=== PATIENT | male | born 1985 | race Hispanic/Latino ===

== ENCOUNTER 2019-04-15 19:47 | Emergency (ER) | payer OTHER ==
[2019-04-15] MEDS ORDERED: ACETAMINOPHEN 325 MG TAB ONE (21:04)
== END 2019-04-15 22:03 ==
LOC: EDH 19:47
DX: S00.83XA Contusion of other part of head, initial encounter (principal); S80.12XA Contusion of left lower leg, initial encounter; Y08.89XA Assault by other specified means, initial encounter; Y93.89 Activity, other specified; Y92.89 Other specified places as the place of occurrence of the external cause; Y99.8 Other external cause status
CPT/HCPCS: 70450; 73552

== ENCOUNTER 2022-09-26 14:10 | Emergency (ER) | payer OTHER ==
[~2022-09-26] VITALS: Ht 157.5 cm; Wt 54.4 kg
[2022-09-26 14:12] VITALS: BP 118/81
[2022-09-26] MEDS ORDERED: KETOROLAC 15MG/ML VIAL (15MG/ML) IM ONE (14:30)
== END 2022-09-26 15:48 | disposition home or self-care (01) ==
LOC: EDH 14:10
DX: S93.492A Sprain of other ligament of left ankle, initial encounter (principal); W50.2XXA Accidental twist by another person, initial encounter; Y93.89 Activity, other specified; Y92.89 Other specified places as the place of occurrence of the external cause; Y99.8 Other external cause status
CPT/HCPCS: 99283; 73610; 96372; J1885